=== PATIENT | male | born 1960 | race Caucasian/White ===

== ENCOUNTER 2019-11-20 04:05 | Outpatient (CLI) | payer OTHER, SELFPAY ==
[2019-11-20 10:49] LABS: ALT 29 U/L (16-63); AST 32 U/L (15-37); Albumin 4.3 g/dL (3.4-5.0); Alkaline Phosphatase 46 U/L (46-116); BUN 15 mg/dL (7-18); Bilirubin, Total 0.9 mg/dL (0.2-1.0); CREATININE 1.03 mg/dL (0.70-1.30); Calcium 9.3 mg/dL (8.5-10.1); Chloride 101 mmol/L (98-107); Glucose 97 mg/dL (74-106); Sodium 138 mmol/L (136-145); Total Protein 7.1 g/dL (6.4-8.2)
[2019-11-20 12:03] LABS: Calculated LDL 99 mg/dL (<100); Cholesterol 213 mg/dL (<200); HDL Cholesterol 103 mg/dL (40-60); Triglyceride 59 mg/dL (<150)
== END 2019-11-20 04:25 ==
PROVIDERS: PCP Family Medicine; Visit Provider Family Medicine
DX: Z13.220 Encounter for screening for lipoid disorders (principal)
CPT/HCPCS: 36415; 80053; 80061

== ENCOUNTER 2022-08-30 10:26 | Outpatient (REF) | payer OTHER, SELFPAY ==
[2022-08-30 16:44] LABS: COVID-19 PCR Negative (Negative); Influenza A PCR Negative (Negative); Influenza B PCR Negative (Negative); RSV PCR Negative (Negative)
[2022-08-30 16:46] LABS: Source Nasopharynx
== END 2022-08-30 10:27 | disposition home or self-care (01) ==
LOC: LBN 10:26
PROVIDERS: PCP Family Medicine; Referring Provider Nurse Practitioner; Visit Provider Nurse Practitioner
DX: R05.9 Cough, unspecified (principal); R09.81 Nasal congestion; R09.89 Other specified symptoms and signs involving the circulatory and respiratory systems; Z20.822 Contact with and (suspected) exposure to COVID-19
CPT/HCPCS: 87637

== ENCOUNTER 2022-12-16 10:06 | Day surgery (SDC) | payer OTHER, SELFPAY ==
[2022-12-16 10:30] VITALS: BP 159/91; PULSE 55; RESP 16; TEMP 36.3; O2SAT 98
[2022-12-16] MEDS: Tropicam./Phenyleph. (1/2.5%) 5 ML BTL OD ×3 (10:50→11:14)
--- NOTE | 2022-12-16 11:01 | W.ANESPRE ---
General Info Date of Service Date Performed: 12/16/22 Height: 5 ft 8.98 in Weight: 70.307 kg Body Mass Index (BMI): 22.8 Surgical Procedure: Operation Date: 12/16/22 12:10 Proposed Procedure Side Surgeon p Cataract Extraction with IOL Implant Right Sourav Santos MD Meds Allergies and Home Medications Allergies Allergy/AdvReac Type Severity Reaction Status Date / Time No Known Allergies Allergy Verified 12/16/22 10:46 Home Medication Medication Instructions Recorded lisinopril 10 mg tablet 10 mg PO DAILY #90 tabs 11/03/22 Current Visit Medications: Current Medications Generic Name Dose Route Start Last Admin Trade Name Freq PRN Reason Stop Dose Admin Acetaminophen 1,000 mg 12/16/22 06:00 Acetaminophen 500 Mg Tab PO 01/15/23 05:59 Q4H PRN PRN Balanced Salt Solution 500 ml 12/16/22 06:00 Balanced Salt Soln.-Plus 500 Ml Bag OP 01/15/23 05:59 DIRECTED NAVNEET Miscellaneous Medication 0 ml 12/16/22 06:00 Prednisolone 1%, Moxifloxacin 0.5%, Nepafenac 0.1% 5ml Btl OD 01/15/23 05:59 DIRECTED NAVNEET Miscellaneous Medication 0 ml 12/16/22 06:00 Tropicam./Phenyleph. (1/2.5%) 5 Ml Btl OD 01/15/23 05:59 DIRECTED NAVNEET Tetracaine HCl 0 ml 12/16/22 06:00 Tetracaine 0.5% 4 Ml Btl OD 01/15/23 05:59 DIRECTED NAVNEET PFSH Active Problems Active Problems: Problem Status Onset Code Cortical age-related cataract, right eye H25.011 Nuclear age-related cataract, right eye H25.11 White coat syndrome with diagnosis of hypertension I10 Hypertension I10 Osteoarthritis M19.90 Medical History Medical History Diverticulosis Surgical History Surgical History History of vasectomy (~10/2008) Tobacco Smoking/Tobacco Use Status: Never Passive smoking exposure: No (I will avoid anyplace smoking is permitted.) Alcohol Alcohol Intake: current Alcohol intake frequency: 3 or more drinks per day Alcohol type: beer and wine Substance Use Substance use: Never Substance use type: does not use Vital Signs and Lab Results Vital Signs Most Recent Vital Signs in EMR: Most Recent Vital Signs Temp Pulse Resp BP Pulse Ox 36.3 C L 55 L 16 159/91 H 98 12/16/22 10:30 12/16/22 10:30 12/16/22 10:30 12/16/22 10:30 12/16/22 10:30 Lab Results Blood Type / Crossmatch: No Data to Display Complete Blood Count: No Data to Display Complete Metabolic Panel: No Data to Display Liver Function Panel: No Data to Display Coagulation Panel: No Data to Display Cardiac Panel: No Data to Display Arterial Blood Gas: No Data to Display Venous Blood Gas: No Data to Display Pancreas Panel: No Data to Display Thyroid Panel: No Data to Display Infectious Disease: No Data to Display Blood Cultures: No Data to Display Toxicology Panel: No Data to Display Anesthesia Assessment and Plan Anesthesia History Personal History: No History of Anesthesia Complications Family History: No Family History of Anesthesia Complications Exercise Tolerance Exercise Tolerance: Metabolic Equivalents>4 Pertinent Negatives Pertinent Negatives: No Symptoms of GERD, No Major Cardiovascular Symptoms or Complaints, No Major Pulmonary Symptoms or Complaints and No History of CVA/TIA Cardiac & Pulmonary Exam Cardiac Exam: Normal S1/S2 Heart Sounds Pulmonary Exam: Clear Bilateral Breath Sounds Implantable Cardiac Device Does patient have a Pacemaker or an ICD?: No Airway Exam Known Difficult Airway: No Mallampati Class: 2 Mouth Opening: Normal (> 3cm) Thyromental Distance: Less than 3 cm Neck Range of Motion: Full ROM Neck Circumference: Normal Teeth Condition: Normal Dentition ASA Classification ASA Score: ASA 2 Emergency Case?: No NPO Status NPO Status: NPO Clears >2 hours, Solids >8 hours Anesthesia Plan Resuscitation Status: Full Code Anesthesia Technique: MAC Anesthesia Airway Planned: Natural Airway Monitors Used: Standard Monitors
[2022-12-16 11:21] VITALS: BMI 22.8
[2022-12-16] MEDS: Balanced Salt Soln.-PLUS 500 ML BAG OP (12:05)
[2022-12-16] MEDS: Tetracaine 0.5% 4 ML BTL OD (12:06)
[2022-12-16] MEDS: Duovisc Viscoelastic System EACH 1 EACH (12:06)
[2022-12-16] MEDS: Lidocaine 1% Pres-Free 5 ML VIAL (12:06)
[2022-12-16] MEDS: Povidone-Iodine Ophth 30 ML BTL (12:07)
[2022-12-16] MEDS: Phenylephrine/Lidocaine (15/10) MG/ML 1 ML VIAL (12:07)
[2022-12-16 12:24] VITALS: BP 161/104; PULSE 63; RESP 18; TEMP 36.4; O2SAT 99
--- NOTE | 2022-12-16 12:25 | W.PM.DSUDISC ---
Date of service: 12/16/22 Time of Service: 12:25 Discharge Plan Disposition Patient Disposition: Home Discharge Details Attending Provider: Sourav Santos Primary Care Provider: John Pradhan Home Meds and New Rx's Prescriptions: No Action lisinopril 10 mg tablet 10 mg PO DAILY Qty: 90 3RF Discharge Instructions Stand Alone Forms: Post-op Topical Cataract, Radha Anderson (DSU) Discharge Orders Discharge Orders: Discharge Order (Routine); Ordered 12/16/22 Ordered By: Sourav Santos DS: Diagnosis Discharge Diagnosis (1) Cortical age-related cataract, right eye: Status: Resolved
--- NOTE | 2022-12-16 12:26 | W.PM.OP ---
Date of service: 12/16/22 Time of Service: 12:26 Operative Note Operative Note DATE OF PROCEDURE: 12/16/22 PRE-OP DIAGNOSIS: Nuclear/cortical cataract, right eye With the rule astigmatism, right eye POST-OP DIAGNOSIS: same PROCEDURE: Cataract extraction using phacoemulsification with toric intraocular lens implant, right eye SURGEON: Sourav Santos Refer to Anesthesia Record PATHOLOGY: none sent COMPLICATIONS: None Patient was transported to: same day Patient's condition: stable Implants: Bhargav [employer]av [employer] Tecnis Eyhance Toric Intraocular Lens Indications: Progressive decreased vision due to cataract, right eye, with corneal astigmatism Procedure Description: [] CATARACT SURGERY OPERATIVE REPORT PREOPERATIVE DIAGNOSIS: Nuclear/cortical cataract, right eye With the rule astigmatism, right eye POSTOPERATIVE DIAGNOSIS: Same OPERATION: Cataract extraction using phacoemulsification with posterior chamber toric intraocular lens implant, right eye. IOL: IOL Supervisor Sleeping Bag Department/Model: Bhargav and Bhargav [employer] Tecnis Eyhance Toric [id number] IOL Power: + 12.50 diopters sphere, + 1.50 cylinder IOL Serial Number: [id number] Optic Diameter: 6.0mm Haptic/Overall Diameter: 13.00mm PHACO INFO: [employer]Sellboxurion Vision System with OZil and Active Fluidics Cumulative Dispersed Energy (CDE): 8.22 seconds SURGEON: Sourav Santos MD, EMY ANESTHESIA: Monitored Anesthesia Care (MAC), with local sub-tenon's anesthetic infiltration COMPLICATIONS: None SPECIMENS: None INDICATIONS FOR PROCEDURE: The patient is a 62-year-old gentleman with history of diminished visual acuity in his right eye secondary to the development of nuclear/cortical cataract. He also has a mild to moderate amount of with the rule corneal a stigmatism. The option of cataract surgery was offered to the patient and he felt he was symptomatic enough that he wished to proceed. In addition, he desired a toric intraocular lens implant. He has a history of high myopia and desires postoperative refractive correction of intermediate distance, -1.50 diopters. See office notes for detailed information. PROCEDURE: The correct surgical eye was identified and marked as the right eye and the pupil was dilated in the preoperative area using mydriatics and cycloplegics. The dilated pupil size was 8.0 mm. With the patient in the seated position, topical anesthetic was applied and a surgical marker was used to rossy the limbus at 6:00. A Surgilum Robomarker was then used to rossy the 0/180 degree reference axis. The patient elected to proceed without oral sedation. The patient was brought to the operating room where cardiopulmonary monitoring was instituted and surgical time-out was performed, confirming the correct operative eye and IOL power. Topical anesthesia was administered and ophthalmic povidone-iodine 5% was instilled into the conjunctival fornices. The ricki-ocular area was prepped with Betadine 10% solution and draped in the usual sterile fashion for intraocular surgery, including an aperture drape. A Tegaderm transparent film dressing was cut in half and used to cover the lashes and lid margins. Care was taken to sequester the lashes and lid margins under the Tegaderm dressing. A lid speculum was placed between the lids of the operative eye and the Angela-Kapil operating microscope was maneuvered into position. Elena scissors were then used to make a conjunctival buttonhole approximately 6mm posterior to the limbus in the inferonasal quadrant. Blunt dissection was carried out to expose bare sclera, and a blunt-tipped sub-tenon?s anesthesia cannula was introduced and passed posteriorly along the globe where non-preserved plain lidocaine was injected into posterior sub-Tenon?s space. A corneal ring gauge and axis marker were then used to rossy the 178 degree position for the main phaco incision.and the 87/267 degree axis for alignment of the toric IOL. A sideport knife was used to make a paracentesis port at the 7:00 postion and intraocular phenylephrine/lidocaine was injected into the anterior chamber. The anterior chamber was filled with viscoelastic.. A keratome knife was used to create a half-thickness groove at the limbus and then to construct a three-plane near-clear corneal tunnel extending 2.0mm into clear cornea at the 178 degree axis. . A flap was raised on the anterior capsule and capsulorhexis forceps were used to complete a continuous curvilinear capsulorhexis of 5.0 mm. Balanced salt solution was then used to perform cortical cleaving hydrodissection and nuclear hydrodelineation until the lens could be freely rotated within the capsular bag. The lens nucleus was then disassembled and removed within the capsular bag and iris plane using phacoemulsification. Residual cortical material was removed using the 45-degree angled silicone I/A tip with 0.3mm port. The posterior capsule was carefully polished to remove as much residual lens epithelial cells as safely possible. The capsular bag was then inflated and the anterior chamber deepened with viscoelastic. The lens implant described above was inserted into the capsular bag using the Bhargav and Bhargav Simplicity pre-loaded injector. A Kuglen hook was used to dial the IOL into position, about 10 degrees counterclockwise of its final alignment. Residual viscoelastic was then removed first from posterior to the IOL, then from the anterior chamber using the I/A handpiece. The I/A handpiece was then used to dial the IOL to the target axis. The lens implant was noted to center nicely within the capsular bag, with the toric IOL landrum aligned at the 87/267 degree axis. The incisions were stromally hydrated, and the anterior chamber was reformed using BSS. Then 0.5cc of moxifloxacin 1.0mg/ml were injected into the capsular bag and anterior chamber. The incisions were checked with a Weck spear and found to be secure. Several drops of ophthalmic povidone-iodine 5% were then applied to the eye followed by two drops of Imprimis combination gatifloxacin/dexamethasone solution. The drapes were removed and a clear plastic protective eye shield was placed over the eye. The patient was then returned to Same Day Surgery in stable condition.
--- NOTE | 2022-12-16 13:13 | W.ANESPOSTOP ---
Postoperative Evaluation Date, Time and Location Date Performed: 12/16/22 Time Performed: 12:30 Patient Location: Day Surgery Unit Vital Signs Most Recent Imported Vital Signs: Most Recent Vital Signs Temp Pulse Resp BP Pulse Ox 36.4 C L 63 18 161/104 H 99 12/16/22 12:24 12/16/22 12:24 12/16/22 12:24 12/16/22 12:24 12/16/22 12:24 Pain Score Most Recent Pain Score: Most Recent Pain Score Pain Level 0 12/16/22 12:24 Assessment Mental Status: Awake (Alert & Oriented to Patient Baseline) Airway and Respiratory Function: Patent airway with normal (patient baseline) respiratory exam Cardiovascular Function: Hemodynamically Stable Hydration Status: Adequately Hydrated Nausea & Vomiting: No Nausea or Vomiting Pain: Pt. Denies Any Pain Peripheral Nerve Block: Patient did not receive a nerve block
== END 2022-12-16 12:35 | disposition home or self-care (01) ==
PROVIDERS: PCP Family Medicine; Visit Provider Ophthalmology
PROC: (CPT 66984; principal; 2022-12-16 12:00)
DX: H25.011 Cortical age-related cataract, right eye (principal); I10 Essential (primary) hypertension; H52.221 Regular astigmatism, right eye
CPT/HCPCS: 66984; V2632

== ENCOUNTER 2022-12-30 11:06 | Day surgery (SDC) | payer OTHER, SELFPAY ==
--- NOTE | 2022-12-30 09:29 | W.PREOPHP ---
Assessment and Plan Assessment and plan (1) Cortical age-related cataract, left eye: Status: Acute Assessment and plan: Assessment: Visually significant cataract of the left eye. Plan: Cataract extraction with lens implantation of the left eye (2) Nuclear age-related cataract, left eye: Status: Acute Assessment and plan: Assessment: Visually significant cataract of the left eye. Plan: Cataract extraction with lens implantation of the left eye History of Present Illness History of Present Illness Chief Complaint: Progressive decreased vision, left eye Narrative: The patient is a 62-year-old male with history of myopic astigmatism who has developed symptomatic bilateral nuclear/cortical cataract. He is significantly symptomatic that he desires cataract surgery attempt to improve and maximize his vision. He underwent cataract surgery in the right eye with a toric intraocular lens implant on 12/16/2022 with postoperative refractive target of -1.50 diopters. Postoperatively, he is doing well. He now presents for cataract surgery in the symptomatic left eye. Review of Systems All systems reviewed & are unremarkable except as noted in HPI and below PFSH All Active Problems Cortical age-related cataract, left eye (Acute) Nuclear age-related cataract, left eye (Acute) Nuclear age-related cataract, right eye (Acute) White coat syndrome with diagnosis of hypertension (Acute) Hypertension (Chronic) Osteoarthritis (Chronic) Medical History Diverticulosis Surgical History History of vasectomy (~10/2008) Family History Mother Anxiety Hypertension Father Diabetes Hypertension Heart attack Stroke Paternal Grandfather Heart attack Maternal Grandfather Heart attack Social History Smoking/Tobacco Use Status: Never Smoking risk assessment performed?: Yes Alcohol Intake: current Alcohol Intake frequency: 3 or more drinks per day Alcohol type: beer and wine Drug use: Never Substance use type: does not use Adopted: No Caregiver/Support person: No Foster care: No Household members: spouse Housing: house Number of Children: 0 Communication Needs: Corrective Lenses Do you need help understanding health information?: Rarely current occupation: Retired CPA Sexually active: Yes Do you think of yourself as: straight/heterosexual Current gender identity: male What is your relationship status?: Panel score (0-1 are the most socially isolated patients): 1 What type of physical activity do you participate in: bicycling, regular exercise and additional Details: skiing Seatbelt use: always Helmet use: Yes Drive intox or ride w/intox special education bus driver: No Working smoke detector in home: Yes Fire extinguisher in home: Yes Carbon monox detector in home: Yes Do you feel safe at home: Yes Do you feel safe in your relationship?: Yes Meds Allergies and Home Medications Allergies Allergy/AdvReac Type Severity Reaction Status Date / Time No Known Allergies Allergy Verified 12/30/22 11:25 Home Medications Medication Instructions Recorded Confirmed Type lisinopril 10 mg tablet 10 mg PO DAILY #90 tabs 11/03/22 12/30/22 Rx Exam Eyes Other: Most recent ocular examination is significant for uncorrected vision and 20/60 in the right eye, pinhole into 2020. In the left eye corrected visual acuity is 20/20. Extract motility is normal. Slit-lamp examination is significant for a well-positioned toric intraocular lens in the right eye. In the left eye mild nuclear and cortical cataract are present. Dilated funduscopic examination reveals disc cupping of 0.2 OU with normal vessels, macula, peripheral retina and vitreous. Resp Auscultation: clear to auscultation bilaterally Cardio Rate: regular rate Rhythm: regular rhythm
[2022-12-30 11:26] VITALS: BP 180/88; PULSE 51; RESP 16; TEMP 36.5; O2SAT 99
[2022-12-30] MEDS: Tropicam./Phenyleph. (1/2.5%) 5 ML BTL OS ×3 (11:33→11:44)
--- NOTE | 2022-12-30 11:33 | W.ANESPRE ---
General Info Date of Service Date Performed: 12/30/22 Height: 5 ft 9 in Weight: 70.9 kg Body Mass Index (BMI): 23.1 Surgical Procedure: Operation Date: 12/30/22 12:55 Proposed Procedure Side Surgeon p Cataract Extraction with IOL Implant Left Sourav Santos MD Meds Allergies and Home Medications Allergies Allergy/AdvReac Type Severity Reaction Status Date / Time No Known Allergies Allergy Verified 12/30/22 11:25 Home Medication Medication Instructions Recorded lisinopril 10 mg tablet 10 mg PO DAILY #90 tabs 11/03/22 Current Visit Medications: Current Medications Generic Name Dose Route Start Last Admin Trade Name Freq PRN Reason Stop Dose Admin Acetaminophen 1,000 mg 12/30/22 06:00 Acetaminophen 500 Mg Tab PO 01/29/23 05:59 Q4H PRN PRN Balanced Salt Solution 500 ml 12/30/22 06:00 Balanced Salt Soln.-Plus 500 Ml Bag OP 01/29/23 05:59 DIRECTED [facility]NEET Miscellaneous Medication 0 ml 12/30/22 06:00 Prednisolone 1%, Moxifloxacin 0.5%, Nepafenac 0.1% 5ml Btl OS 01/29/23 05:59 DIRECTED NAVNEET Miscellaneous Medication 0 ml 12/30/22 06:00 Tropicam./Phenyleph. (1/2.5%) 5 Ml Btl OS 01/29/23 05:59 DIRECTED NAVNEET Tetracaine HCl 0 ml 12/30/22 06:00 Tetracaine 0.5% 4 Ml Btl OS 01/29/23 05:59 DIRECTED NAVNEET PFSH Active Problems Active Problems: Problem Status Onset Code Cortical age-related cataract, left eye H25.012 Nuclear age-related cataract, left eye H25.12 Cortical age-related cataract, right eye H25.011 Nuclear age-related cataract, right eye H25.11 White coat syndrome with diagnosis of hypertension I10 Hypertension I10 Osteoarthritis M19.90 Medical History Medical History Diverticulosis Surgical History Surgical History History of vasectomy (~10/2008) Tobacco Smoking/Tobacco Use Status: Never Passive smoking exposure: No (I will avoid anyplace smoking is permitted.) Alcohol Alcohol Intake: current Alcohol intake frequency: 3 or more drinks per day Alcohol type: beer and wine Substance Use Substance use: Never Substance use type: does not use Vital Signs and Lab Results Vital Signs Most Recent Vital Signs in EMR: Most Recent Vital Signs Temp Pulse Resp BP Pulse Ox 36.5 C 51 L 16 180/88 H 99 12/30/22 11:26 12/30/22 11:26 12/30/22 11:26 12/30/22 11:12/30/22 11:26 Lab Results Blood Type / Crossmatch: No Data to Display Complete Blood Count: No Data to Display Complete Metabolic Panel: No Data to Display Liver Function Panel: No Data to Display Coagulation Panel: No Data to Display Cardiac Panel: No Data to Display Arterial Blood Gas: No Data to Display Venous Blood Gas: No Data to Display Pancreas Panel: No Data to Display Thyroid Panel: No Data to Display Infectious Disease: No Data to Display Blood Cultures: No Data to Display Toxicology Panel: No Data to Display Anesthesia Assessment and Plan Anesthesia History Personal History: No History of Anesthesia Complications Family History: No Family History of Anesthesia Complications Exercise Tolerance Exercise Tolerance: Metabolic Equivalents>4 Pertinent Negatives Pertinent Negatives: No Symptoms of GERD, No Major Cardiovascular Symptoms or Complaints, No Major Pulmonary Symptoms or Complaints and No History of CVA/TIA Cardiac & Pulmonary Exam Cardiac Exam: Normal S1/S2 Heart Sounds Pulmonary Exam: Clear Bilateral Breath Sounds Implantable Cardiac Device Does patient have a Pacemaker or an ICD?: No Airway Exam Known Difficult Airway: No Mallampati Class: 2 Mouth Opening: Normal (> 3cm) Thyromental Distance: Less than 3 cm Neck Range of Motion: Full ROM Neck Circumference: Normal Teeth Condition: Normal Dentition ASA Classification ASA Score: ASA 2 Emergency Case?: No NPO Status NPO Status: NPO Clears >2 hours, Solids >8 hours Anesthesia Plan Resuscitation Status: Full Code Anesthesia Technique: MAC Anesthesia Airway Planned: Natural Airway Monitors Used: Standard Monitors
[2022-12-30 11:37] VITALS: BMI 23.1
[2022-12-30] MEDS: Balanced Salt Soln.-PLUS 500 ML BAG OP (12:39)
[2022-12-30] MEDS: Duovisc Viscoelastic System EACH 1 EACH (12:40)
[2022-12-30] MEDS: Tetracaine 0.5% 4 ML BTL OS (12:40)
[2022-12-30] MEDS: Lidocaine 1% Pres-Free 5 ML VIAL (12:41)
[2022-12-30] MEDS: Phenylephrine/Lidocaine (15/10) MG/ML 1 ML VIAL (12:42)
[2022-12-30] MEDS: Povidone-Iodine Ophth 30 ML BTL (12:42)
--- NOTE | 2022-12-30 13:01 | ROE_ITS ---
Date of service: 12/30/22 Time of Service: 13:01 Operative Note Operative Note DATE OF PROCEDURE: 12/30/22 PRE-OP DIAGNOSIS: Nuclear/cortical cataract, left eye With the rule astigmatism, left eye POST-OP DIAGNOSIS: same PROCEDURE: Cataract extraction using phacoemulsification with toric intraocular lens implant, left eye SURGEON: Sourav Santos ANESTHESIA TYPE: Local By Surgeon and MAC Refer to Anesthesia Record PATHOLOGY: none sent COMPLICATIONS: None Patient was transported to: same day Patient's condition: stable Implants: Bhargav and Bhargav Vision Tecnis Eyhance Toric Intraocular Lens Indications: Progressive decreased vision due to cataract, left eye, with corneal astigmatism Procedure Description: CATARACT SURGERY OPERATIVE REPORT PREOPERATIVE DIAGNOSIS: Nuclear/cortical cataract, left eye With the rule astigmatism, left eye POSTOPERATIVE DIAGNOSIS: Same OPERATION: Cataract extraction using phacoemulsification with posterior chamber toric intraocular lens implant, left eye. IOL: IOL Account Analyst/Model: Bhargav & Bhargav Vision Tecnis Eyhance Toric [id number] IOL Power: + 14.5 diopters sphere, +2.25 cylinder IOL Serial Number: [id number] Optic Diameter: 6.0mm Haptic/Overall Diameter: 13.00mm PHACO INFO: Doug DNAdigesturion Vision System with OZil and Active Fluidics Cumulative Dispersed Energy (CDE): 4.36 seconds SURGEON: Sourav Santos MD, EMY ANESTHESIA: Monitored Anesthesia Care (MAC), with local sub-tenon's anesthetic infiltration COMPLICATIONS: None SPECIMENS: None INDICATIONS FOR PROCEDURE: The patient is a 62-year-old gentleman with history of with the rule astigmatism and myopia who has developed symptomatic bilateral nuclear/cortical cataract. He is significantly symptomatic that he desires cataract surgery and attempt to improve and maximize his vision. He has already undergone cataract surgery in the right eye with a toric intraocular lens implant with postop refractive target of -1.50 diopters. He now presents for cataract surgery in the left eye with same refractive target. See office notes for detailed information. PROCEDURE: The correct surgical eye was identified and marked as the left eye and the pupil was dilated in the preoperative area using mydriatics and cycloplegics. The dilated pupil size was 8.0 mm. With the patient in the seated position, topical anesthetic was applied and a surgical marker was used to rossy the limbus at 6:00. A Surgilum Robomarker was then used to rossy the 0/180 degree reference axis. The patient elected to proceed without oral sedation. The patient was brought to the operating room where cardiopulmonary monitoring was instituted and surgical time-out was performed, confirming the correct operative eye and IOL power. Topical anesthesia was administered and ophthalmic povidone-iodine 5% was instilled into the conjunctival fornices. The ricki-ocular area was prepped with Betadine 10% solution and draped in the usual sterile fashion for intraocular surgery, including an aperture drape. A Tegaderm transparent film dressing was cut in half and used to cover the lashes and lid margins. Care was taken to sequester the lashes and lid margins under the Tegaderm dressing. A lid speculum was placed between the lids of the operative eye and the Doug [employer] Revaliat operating microscope was maneuvered into position. Elena scissors were then used to make a conjunctival buttonhole approximately 6mm posterior to the limbus in the inferonasal quadrant. Blunt dissection was carried out to expose bare sclera, and a blunt-tipped sub-tenon?s anesthesia cannula was introduced and passed posteriorly along the globe where non- preserved plain lidocaine was injected into posterior sub-Tenon?s space. A corneal ring gauge and axis marker were then used to rossy the 009 degree position for the main phaco incision, and the 101/281 degree axis for alignment of the toric IOL. A sideport knife was used to make a paracentesis port superior/superiortemporally. Intraocular phenylephrine/lidocaine was injected into the anterior chamber. The anterior chamber was then filled with viscoelastic. A keratome knife was used to create a half-thickness groove at the limbus and then to construct a three-plane near-clear corneal tunnel extending 2.0mm into clear cornea at the 009 degree axis. . A flap was raised on the anterior capsule and capsulorhexis forceps were used to complete a continuous curvilinear capsulorhexis of 5.0 mm. Balanced salt solution was then used to perform cortical cleaving hydrodissection and nuclear hydrodelineation until the lens could be freely rotated within the capsular bag. The lens nucleus was then disassembled and removed within the capsular bag and iris plane using phacoemulsification. Residual cortical material was removed using the irrigation/aspiration sorenson ndpiece. The posterior capsule was carefully polished to remove as much residual lens epithelial cells as safely possible. The capsular bag was then inflated and the anterior chamber deepened with viscoelastic. The lens implant described above was inserted into the capsular bag using the Nomi & C2FO pre-loaded injector. . A Kuglen hook was used to dial the IOL into position, about 10 degrees counterclockwise of its final alignment. Residual viscoelastic was then removed first from posterior to the IOL, then from the anterior chamber using the I/A handpiece. The I/A handpiece was then used to dial the IOL to the target axis. The lens implant was noted to center nicely within the capsular bag, with the toric IOL landrum aligned at the 101/281 degree axis. The incisions were stromally hydrated, and the anterior chamber was reformed using BSS. Then 0.5cc of moxifloxacin 1.0mg/ml were injected into the capsular bag and anterior chamber. The incisions were checked with a Weck spear and found to be secure. Several drops of ophthalmic povidone-iodine 5% were then applied to the eye followed by two drops of Imprimis combination prednisolone/moxifloxacin/nepafenac solution. The drapes were removed and a clear plastic protective eye shield was placed over the eye. The patient was then returned to [facility] Day Surgery in stable condition.
--- NOTE | 2022-12-30 13:01 | W.PM.DSUDISC ---
Date of service: 12/30/22 Time of Service: 13:01 Discharge Plan Disposition Patient Disposition: Home Discharge Details Attending Provider: Sourav Santos Primary Care Provider: John Pradhan Home Meds and New Rx's Prescriptions: No Action lisinopril 10 mg tablet 10 mg PO DAILY Qty: 90 3RF Discharge Instructions Stand Alone Forms: Post-op Topical Cataract, Radha Anderson (DSU) Discharge Orders Discharge Orders: Discharge Order (Routine); Ordered 12/30/22 Ordered By: Sourav Santos DS: Diagnosis Discharge Diagnosis (1) Cortical age-related cataract, left eye: Status: Resolved (2) Nuclear age-related cataract, left eye: Status: Resolved
[2022-12-30 13:05] VITALS: BP 161/98; PULSE 59; RESP 16; TEMP 36.4; O2SAT 98
--- NOTE | 2022-12-30 13:10 | W.ANESPOSTOP ---
Postoperative Evaluation Date, Time and Location Date Performed: 12/30/22 Time Performed: 13:07 Patient Location: Day Surgery Unit Vital Signs Most Recent Imported Vital Signs: Most Recent Vital Signs Temp Pulse Resp BP Pulse Ox 36.4 C L 59 L 16 161/98 H 98 12/30/22 13:05 12/30/22 13:05 12/30/22 13:05 12/30/22 13:05 12/30/22 13:05 Pain Score Most Recent Pain Score: Most Recent Pain Score Pain Level 0 12/30/22 13:05 Assessment Mental Status: Awake (Alert & Oriented to Patient Baseline) Airway and Respiratory Function: Patent airway with normal (patient baseline) respiratory exam Cardiovascular Function: Hemodynamically Stable Hydration Status: Adequately Hydrated Nausea & Vomiting: No Nausea or Vomiting Pain: Pt. Denies Any Pain Peripheral Nerve Block: Patient did not receive a nerve block
== END 2022-12-30 13:17 | disposition home or self-care (01) ==
LOC: SUR 11:07
PROVIDERS: PCP Family Medicine; Visit Provider Ophthalmology
PROC: (CPT 66984; principal; 2022-12-30 12:45)
DX: H25.012 Cortical age-related cataract, left eye (principal); H25.12 Age-related nuclear cataract, left eye; I10 Essential (primary) hypertension
CPT/HCPCS: 66984; V2632

== ENCOUNTER 2024-09-12 02:20 | Outpatient (CLI) | payer MEDICARE, SELFPAY ==
[2024-09-12 09:24] LABS: Anion Gap 4.9 mmol/L (3-11); BUN 17 mg/dL (7-18); CO2 31.1 mmol/L (21.0-32.0); CREATININE 1.1 mg/dL (0.70-1.30); Calcium 9.6 mg/dL (8.5-10.1); Chloride 104 mmol/L (98-107); Glucose 99 mg/dL (74-106); Potassium 4.7 mmol/L (3.5-5.1); Sodium 140 mmol/L (136-145)
== END 2024-09-12 02:21 | disposition home or self-care (01) ==
PROVIDERS: PCP Family Medicine; Visit Provider Family Medicine
DX: I10 Essential (primary) hypertension (principal)
CPT/HCPCS: 36415; 80048; 84443

== ENCOUNTER 2025-05-24 11:50 | Outpatient (CLI) | payer MEDICARE, SELFPAY ==
--- NOTE | 2025-05-24 11:45 | RT.EKG_ITS ---
APPROVED REPORT Exam: Resting ECG Reason for Exam: HTN Patient Location: O HR:74 bpm ECG Measurements Heart Rate 74 AXIS MT 184 P 5 QRSd 87 QRS -3 QT 363 T 12 QTc 403 Conclusion Sinus rhythm...normal P axis, V-rate 50- 99
== END 2025-05-24 11:51 | disposition home or self-care (01) ==
LOC: DI.CM 11:51
PROVIDERS: PCP Family Medicine; Visit Provider Nurse Practitioner Family
DX: I10 Essential (primary) hypertension (principal)
CPT/HCPCS: 93010

== ENCOUNTER 2025-05-24 12:15 | Emergency (ER) | payer MEDICARE, SELFPAY ==
[2025-05-24] VITALS (9 sets, daily range): BP systolic 173–200; BP diastolic 92–111; PULSE 67–78; RESP 15–26; TEMP 37.1; O2SAT 98
--- NOTE | 2025-05-24 12:15 | RT.EKG_ITS ---
APPROVED REPORT Exam: Resting ECG Reason for Exam: chest pain Patient Location: E HR:76 bpm ECG Measurements Heart Rate 76 AXIS SC 172 P 8 QRSd 81 QRS 12 QT 347 T 16 QTc 392 Conclusion Sinus rhythm, rate 76 No interval abnormalities No STEMI, borderline<1mm elevation V1/V2, unchanged from prior Inverted T waves lead III unchanged from prior Q wave V1-V2
--- NOTE | 2025-05-24 12:30 | DI.RAD_ITS ---
Exam(s) XR CHEST 2V PA LATERAL EXAM: XR CHEST 2V PA LATERAL CLINICAL HISTORY: Chest pain TECHNIQUE: 2D digital imaging was performed of the chest. Two images were obtained. PA and lateral views were obtained. COMPARISON: No exams were available for comparison FINDINGS: MEDIASTINUM: Normal. HEART: Normal. PULMONARY VASCULATURE: Normal. LUNGS: Clear. PLEURAL SPACE: No pleural effusion or pneumothorax. BONE:Within normal limits for the patient's age. OTHER FINDINGS:Normal. IMPRESSION: 1. No acute pulmonary findings. 2. The preliminary [facility] report was reviewed. DATA REPOSITORY: RADIATION DOSE DELIVERED:
--- NOTE | 2025-05-24 12:56 | W.ED.GENAD ---
Discharge Plan Disposition Patient Disposition: Home Condition: Stable Discharge Details Clinical Impression: Influenza A, Chest pain, Hypertension Primary Care Provider: John Pradhan ED Provider: Kita Sofia Home Meds and New Rx's Prescriptions: No Action lisinopril 40 mg tablet 40 mg PO DAILY Qty: 90 3RF oseltamivir [Tamiflu] 75 mg capsule 75 mg PO BID 5 Days Qty: 10 0RF Discharge Instructions Instructions: Flu, Adult ED Additional Instructions: You were seen in the emergency department today for evaluation after experiencing a brief episode of chest pain at the urgent care clinic. In our department you had a full physical examination performed, had an EKG that was reassuring and did not show any sign of heart attack, and had laboratory studies that showed normal cardiac enzymes, a slight decrease in your white blood cell count related to your influenza A infection, but no electrolyte problems, anemia, or damage to your kidneys or liver. This exam was very reassuring against heart attack or ongoing damage to your heart. You had an x-ray of your chest that did not show any sign of pneumonia or other problems within your lungs. Most likely, you are experiencing symptoms related to your viral infection. Please start the Tamiflu medication as soon as you are able to pick it up, as this can shorten the duration of influenza symptoms. You can continue to use Tylenol and [id number] medications as needed for management of fever and other cough and cold symptoms. Please follow-up with your primary care provider in the next few days to discuss this visit and any symptoms that change, worsen, or persist. Thank you for allowing us to be part of your care. Stand Alone Forms: Portal Information HPI General Mode of arrival: ambulatory. Date/Time Provider Initiated Documentation: 05/24/25 12:16. Limitations to Documentation: no limitations. Information obtained by: patient, family and old records reviewed. HPI Narrative: This is a 64-year-old male patient with a past medical history of hypertension presenting for evaluation of chest pain. The patient reports that for the last 2 days he has been ill with flulike symptoms, especially body aches, cough, sore throat. The patient was seen in the urgent care today, and was diagnosed with influenza A. While at that department he had an episode of burning chest pain in the center of his chest that lasted approximately 20 seconds. He reports that he tried to stretch and move his body, is not sure if that is what made it go away, but it did resolve entirely and has not recurred. At the time that he had the pain it did not radiate to his arm, jaw, or back, he has not had pain like this in the past and has no personal cardiac history, though he does have a family history of cardiac disease. He reports no shortness of breath and does not have reproduction of his chest pain when he takes a deep breath. Has had a low-grade fever at home to a Tmax of 100.3, took Tylenol right around 9 AM this morning. The patient does note that during coughing fits especially yesterday that he had some discomfort that went up into the back of his neck and occipital region, this is also entirely resolved. He has a history of occasional headaches, but does not have a headache at this time. This was not associated with any vision changes, numbness, weakness, dizziness, etc. The patient was provided with a prescription for Tamiflu, and was sent to our emergency department for cardiac workup. He had an EKG done at the urgent care that showed no STEMI. Related Data Home Medications ?Medication ?Instructions ?Recorded ?Confirmed lisinopril 40 mg tablet 40 mg PO DAILY #90 tabs 07/16/24 05/24/25 oseltamivir 75 mg capsule (Tamiflu) 75 mg PO BID 5 days #10 caps 05/24/25 05/24/25 Previous Rx's ?Medication ?Instructions ?Recorded lisinopril 40 mg tablet 40 mg PO DAILY #90 tabs 07/16/24 oseltamivir 75 mg capsule (Tamiflu) 75 mg PO BID 5 days #10 caps 05/24/25 Allergies Allergy/AdvReac Type Severity Reaction Status Date / Time No Known Allergies Allergy Verified 05/24/25 12:23 General Stated Complaint: Chest Pain YANELIS: 3 Exam Narrative Exam Narrative: Gen: Awake and alert, in no apparent distress HEENT: Non-icteric sclera, PERRL. Posterior pharynx without erythema or exudate, no tenderness to the cervical paraspinal muscles or occipital region Neck: Supple, full range of motion Lungs: No apparent respiratory distress, normal respiratory effort. Lung sounds clear and equal bilaterally without wheezes, rhonchi, rales CV: Appears well perfused, heart with regular rate and rhythm, strong distal pulses. Chest wall is not tender and there is no overlying skin changes Abdomen: Non-distended, soft, nontender to palpation without rigidity, rebound, or guarding. MSK: Moves 4 extremities without apparent limitation in ROM. No peripheral edema, no unilateral calf swelling or tenderness Skin: Visualized skin without rashes, cyanosis. Neuro: Normal Gait, no obvious focal deficits or facial asymmetry. Speaks in full, clear sentences. Psych: Appropriate for situation. Course Vital Signs Vital signs: Vital Signs Temperature 37.1 C 05/24/25 12:18 Pulse 78 05/24/25 12:18 Respiratory Rate 16 05/24/25 12:18 Blood Pressure 196/102 H 05/24/25 12:18 Pulse Oximetry 98 05/24/25 12:18 Temperature 37.1 C 05/24/25 12:18 Temperature Source Oral 05/24/25 12:18 Pulse 78 05/24/25 12:18 Respiratory Rate 16 05/24/25 12:18 Blood Pressure 196/102 H 05/24/25 12:18 Blood Pressure Position Sitting 05/24/25 12:18 Pulse Oximetry 98 05/24/25 12:18 Oxygen Delivery Method Room Air 05/24/25 12:18 Oxygen Flow Rate 0 05/24/25 12:18 Medical Decision Making This is a 64-year-old male patient presenting for evaluation after experiencing a brief episode of chest pain, now resolved, in the setting of a recent diagnosis of influenza. My differential includes but is not limited to ACS including STEMI, NSTEMI, unstable angina, certainly considered arrhythmia, pericarditis/myocarditis, aortic pathology. Considered pulmonary abnormalities including URI, pneumonia, bronchitis, pleural effusion, pulmonary edema, reactive airway disease, pneumothorax. The patient is without tachycardia, hypoxia, or a pleuritic component to his pain to significantly increase my concern for pulmonary embolism. No GI symptoms or vomiting to suggest Boerhaave's, esophagitis, peptic ulcer disease, pancreatitis. Considered musculoskeletal pathologies including costochondritis, chest wall pain. I obtained an EKG which shows a sinus rhythm without evidence of ischemia, interval abnormality, or ectopy. The patient does have Q waves in V1 and V2, unchanged from prior obtained at urgent care, no other historical EKGs available for comparison. T waves flipped in lead III, also unchanged. Does not meet STEMI criteria. The patient requested an additional dose of Tylenol which I provided. We will obtain labs to include CBC, CMP, magnesium, troponin, lipase, and will obtain a chest x-ray. - I independently interpreted the laboratory studies, which show no significant leukocytosis, anemia, or thrombocytopenia. The chemistry panel is without evidence of electrolyte abnormality, kidney dysfunction, or liver injury. The patient does actually have a mild leukopenia consistent with his known viral infection. Troponin is negative and without interval increase on 1 hour delta recheck, reassuring against active cardiac ischemia. Lipase is low. I reviewed the patient's chest x-ray, which shows no focal consolidations, evidence of pneumonia or other abnormalities to explain the patient's symptoms. The patient was observed in the emergency department and did not have any further episodes of chest pain. I am most concerned that the patient's symptoms are due to his current influenza A infection. I counseled the patient on conservative management, masking and distancing practices, and good hydration and nutrition. At this time, the patient has had a full medical evaluation and is safe for discharge to home. They are hemodynamically stable, ambulatory, and tolerating PO. They are understanding of the follow-up plan and return precautions. They left our facility without incident. Kita Sofia MD [facility] All Active Problems (Updated 05/24/25 @ 14:21 by Kita Sofia MD) Chest pain (Acute) Influenza A (Acute) White coat syndrome with diagnosis of hypertension (Acute) Hypertension (Chronic) Osteoarthritis (Chronic) Medical History (Updated 05/24/25 @ 14:21 by Kita Sofia MD) Nuclear age-related cataract, right eye Diverticulosis Surgical History (Updated 12/29/23 @ 14:23 by Amy Longoria [facility]) Cortical age-related cataract, left eye Nuclear age-related cataract, left eye Cortical age-related cataract, right eye Status post cataract surgery Left eye - 12/16/2022 - Dr Santos Right eye - 12/30/2022 - Dr Santos History of vasectomy (~10/2008) Family History Mother Anxiety Hypertension Father Diabetes Hypertension Heart attack Stroke Paternal Grandfather Heart attack Maternal Grandfather Heart attack Social History Smoking/Tobacco Use Status: Never Tobacco: How many years used: 0 Smoking risk assessment performed?: Yes Alcohol Intake: current Alcohol Intake frequency: 3 or more drinks per day Alcohol type: beer and wine Drug use: Never Substance use type: does not use Adopted: No Caregiver/Support person: No Foster care: No Household members: spouse Housing: house Number of Children: 0 Communication Needs: Corrective Lenses Do you need help understanding health information?: Rarely current occupation: Retired CPA Sexually active: Yes Do you think of yourself as: straight/heterosexual Current gender identity: male What is your relationship status?: Panel score (0-1 are the most socially isolated patients): 1 What type of physical activity do you participate in: bicycling, regular exercise and additional Details: skiing Seatbelt use: always Helmet use: Yes Drive intox or ride w/intox rear load truck driver: No Working smoke detector in home: Yes Fire extinguisher in home: Yes Carbon monox detector in home: Yes Do you feel safe at home: Yes Do you feel safe in your relationship?: Yes PAWSS Have you Been Recently Intoxicated or Drunk Within the Last 30 days?: No Have you Ever Experienced Previous Episodes of Alcohol Withdrawal?: No Have you ever Experienced Withdrawal Seizures?: No Have you ever Experienced Delirium Tremens(DT)s?: No Have you ever undergone Alcohol Rehabilitation Treatment (i.e, inpt ot outpatient treatment programs)?: No Have you ever Experienced Blackouts?: No Have you ever Combined Alcohol with other Downers within the last 90 days?: No Have you ever Combined Alcohol with any other Substance of Abuse during the last 90 days?: No Positive Blood Alcohol level on Presentation? [PCS.BAL]: No Evidence of Increased Autonomic Activity (i.e. HR>120, tremor, sweating, agitation, nausea)?: No Result: 0
[2025-05-24] MEDS: Acetaminophen 500 MG TAB 1000 MG PO (13:01)
[2025-05-24 13:04] LABS: Abs Immature Grans 0.01 10^3/uL (0.0-0.06); HCT 44.6 % (40.0-50.0); HGB 15.0 g/dL (13.5-17.5); Immature Grans % 0.3 %; MCH 29.8 pg (27.0-33.0); MCHC 33.6 % (32.0-36.0); MCV 89 fL (80-95); MPV 9.2 fL (8.0-11.0); Platelet Count 179 10^3/uL (130-400); RBC 5.03 10^6/uL (4.36-5.78); RDW 13.2 % (11.8-14.1); RDW-SD 43.1 fL; WBC 3.28 10^3/uL (4.4-10.8)
[2025-05-24 13:20] LABS: Lipase 37 U/L (<53)
[2025-05-24 13:21] LABS: Magnesium 1.9 mg/dL (1.6-2.6); Troponin I 3 ng/L (<54)
[2025-05-24 13:23] LABS: ALT 20 U/L (10-49); AST 28 U/L (<34); Albumin 4.7 g/dL (3.2-5.0); Alkaline Phosphatase 50 U/L (46-116); Anion Gap 8.2 mmol/L (3-11); BUN 12 mg/dL (9-23); Bilirubin, Total 0.6 mg/dL (0.2-1.2); CO2 28.2 mmol/L (20.0-31.0); Calcium 9.3 mg/dL (8.3-10.6); Chloride 100 mmol/L (98-107); Glucose 111 mg/dL (74-106); Potassium 4.1 mmol/L (3.5-5.1); Sodium 136 mmol/L (136-145); Total Protein 7.3 g/dL (5.7-8.2)
--- NOTE | 2025-05-24 14:13 | DI.[facility]_ITS ---
PROCEDURE INFORMATION: Exam: XR Chest Exam date and time: 05/24/2025 1:07 PM Age: 64 years old Clinical indication: Other: Chest pain; Additional info: PT is flu + TECHNIQUE: Imaging protocol: Radiologic exam of the chest. Views: 2 views. COMPARISON: No relevant prior studies available. FINDINGS: Lungs: No consolidation. Pleural spaces: . No pleural effusion. No pneumothorax. Heart/Mediastinum: Unremarkable. No cardiomegaly. Bones/joints: No acute osseous abnormality with mild degenerative changes in the right glenohumeral joint with mild marginal spurring noted. IMPRESSION: No acute findings. Dictated and Authenticated by: Jacques Castellanos MD. Orderin [facility] MD
[2025-05-24 14:16] LABS: Troponin I 3 ng/L (<54)
== END 2025-05-24 14:35 | disposition home or self-care (01) ==
PROVIDERS: Emergency Provider Emergency Medicine; PCP Family Medicine
DX: J10.89 Influenza due to other identified influenza virus with other manifestations (principal); R07.9 Chest pain, unspecified; I10 Essential (primary) hypertension
CPT/HCPCS: 99284 ×2; 36415; 80053; 83690; 93005; 71046; 83735; 84484; 85025; 93010